=== PATIENT | female | born 1955 | race Asian ===

== ENCOUNTER 2019-07-21 07:39 | Emergency (ER) | payer MEDICARE ==
[~2019-07-21] VITALS: Ht 157.5 cm; Wt 56.8 kg
[2019-07-21] MEDS ORDERED: ANAS1TAB50 PO (09:22)
[2019-07-21 09:32] VITALS: BP 119/79
== END 2019-07-21 09:38 | disposition home or self-care (01) ==
LOC: EMS 07:53
DX: Z76.0 Encounter for issue of repeat prescription (principal); F17.200 Nicotine dependence, unspecified, uncomplicated; F12.90 Cannabis use, unspecified, uncomplicated; Z85.3 Personal history of malignant neoplasm of breast